=== PATIENT | male | born 1940 | race Caucasian/White ===

== ENCOUNTER 2016-10-15 | Inpatient (IN) | payer MEDICARE, OTHER ==
[~2016-10-15] MED LIST: AGRYLIN0.5 M1 PO; ASPIRIN81 M1 PO; ATIVAN0.5 M1 PO; CALCIUM CARBON600 M2 PO; FLONASE ALLERG9.9 ML; LUPRON; MULTIVITAMINS1 EAC6 PO; XTANDI40 M1 PO
[2016-10-16] MEDS ORDERED: NORCO 5-325 TA1 EACH PO (13:00)
== END 2016-10-16 15:00 | DRG 517 ==
DX: M48.06 Spinal stenosis, lumbar region (principal); D69.6 Thrombocytopenia, unspecified; M48.07 Spinal stenosis, lumbosacral region; E78.5 Hyperlipidemia, unspecified; F41.9 Anxiety disorder, unspecified; K59.00 Constipation, unspecified; N40.0 Benign prostatic hyperplasia without lower urinary tract symptoms